=== PATIENT | male | born 1960 | race Caucasian/White ===

== ENCOUNTER 2017-01-04 06:03 | Day surgery (SDC) | payer OTHER ==
[~2017-01-04] VITALS: Ht 167.6 cm; Wt 89.8 kg
[~2017-01-04 06:03] MED LIST: ACET1TAB40 PO; CIPR500T4 PO; LOPE2CAP PO
[2017-01-04 07:27] VITALS: Ht 167.6 cm; Wt 89.8 kg
[2017-01-04] MEDS ORDERED: TAMSULOSIN (07:40)
[2017-01-04] MEDS ORDERED: GLIMEPIRIDE (07:40)
[2017-01-04] MEDS ORDERED: LOSARTAN (07:40)
[2017-01-04] MEDS ORDERED: SIMVASTATIN (07:40)
[2017-01-04] MEDS ORDERED: METFORMIN (07:41)
--- NOTE | 2017-01-04 08:41 | OPPN ---
Date/Time of Note Date/Time of Note DATE: 01/04/17 TIME: 08:40 Operative Report Preoperative Diagnosis Screening Postoperative Diagnosis Small right colon polyp was removed Diverticulosis of the colon Internal hemorrhoids Operation/Procedure Performed Colonoscopy and biopsy Surgeon see signature line hr assistant None Anesthesia: MAC Estimated blood loss: none Transfusion Required none Specimen Colon polyp Grafts/Implants none Complications none ABDI FITZGERALD MD Jan 04, 2017 08:41
[2017-01-04] MEDS ORDERED: PROPOFOL 60 ML ONE (08:45)
[2017-01-04 09:06] VITALS: BP 135/86; RESP 14
--- NOTE | 2017-01-05 08:55 | GILP ---
DATE OF PROCEDURE: NAME OF PROCEDURES: Colonoscopy and biopsy. SURGEON: Abdi Jernigan MD PREOPERATIVE DIAGNOSIS: Screening colonoscopy. POSTOPERATIVE DIAGNOSES: 1. Colonoscopy all the way to the cecum. 2. Small right colon polyp was removed using the biopsy forceps. 3. Diverticulosis of the colon. 4. Internal hemorrhoids. INDICATION FOR THE PROCEDURE: Mr. Georges Lofton is a 56-year-old male patient who was scheduled fo r screening colonoscopy. The procedure and possible complications were well explained to the patient. The patient understood and consented to the procedure. DESCRIPTION OF PROCEDURE: Under the influence of anesthesia, the colonoscope was carefully introduc ed in the rectum and under direct vision, it was advanced all the way to the cecum. FINDINGS: The patient had a small right colon polyp and it was removed using the biopsy forceps. H e had diverticulosis of the colon and internal hemorrhoids. He tolerated the procedure very well and there was no complication from the procedures. At the end of the procedure, he was awake with stable vital signs and he was discharged home to the care of his family. IMPRESSION: Please see postoperative diagnoses. PLAN: Next screening colonoscopy in 10 years. Dictated By: ABDI SCHMIDT/ALYSSA Conf#: [id number] DID#: [id number]
== END 2017-01-04 11:47 | disposition home or self-care (01) ==
LOC: GIL 06:03
PROVIDERS: ATTEND Internal Medicine Gastroenterology
DX: Z12.11 Encounter for screening for malignant neoplasm of colon (principal); I10 Essential (primary) hypertension; E11.9 Type 2 diabetes mellitus without complications; K63.5 Polyp of colon; K57.90 Diverticulosis of intestine, part unspecified, without perforation or abscess without bleeding; K64.8 Other hemorrhoids; E78.5 Hyperlipidemia, unspecified
CPT/HCPCS: 45378; 82962; 88305; Z7610